=== PATIENT | female | born 1975 | race African-American/Black ===

== ENCOUNTER 2018-07-06 17:22 | Emergency (ER) | payer BC, OTHER ==
[~2018-07-06] VITALS: Ht 162.6 cm; Wt 88.5 kg
--- NOTE | 2018-07-06 17:52 | NUR ---
ED Nurse Note: patient walked into ED having pain to the right side of head since last night accompanied by right arm numbness and tingling. states having tingling to fingertips of right hand. denies n/v has had frequent tingling to right hand before
--- NOTE | 2018-07-06 18:10 | Emergency Room Report ---
History of Present Illness General Chief Complaint: General Complaint Source: Patient Present Illness HPI 42-year-old female patient presents the ER complaining of right-sided headache and numbness and tingling in her right upper extremity for the past day. Denies BUSTOS symptoms currently however concerned over BUSTOS symptoms last night while laying down. Reports history of migraines, states that this headache feels different. Reports that she normally takes medication for migraines, states she does not remember the name of the medication. Patient also reports history of similar tingling sensations in her hand. Reports history of arthritis. Denies acute injury or trauma. Denies syncope or dizziness. Denies neck pain or stiffness. Denies fever, chest pain or shortness of breath, abdominal pain. Denies vertigo. Denies ear ringing. Denies taking blood thinner medications. Denies history of [place] or stroke. Denies other aggravating or relieving factors. Denies hx of diabetes. Allergies: Coded Allergies: No Known Allergies (Unverified , 07/06/18) Patient History Past Medical History: see triage record Last Menstrual Period: last week Now: No Reviewed Nursing Documentation: PMH: Agreed; PSxH: Agreed Nursing Documentation-PMH Past Medical History: No History, Except For Hx Neurological Problems: Yes - migraines Review of Systems All Other Systems: negative except mentioned in HPI Physical Exam Vital Signs Date Time Temp Pulse Resp B/P (MAP) Pulse Ox O2 Delivery O2 Flow Rate FiO2 07/06/18 17:47 97.9 60 18 129/84 98 Room Air Sp02 EP Interpretation: reviewed, normal General Appearance: well appearing, no apparent distress, alert, GCS 15, non- toxic Head: normocephalic, atraumatic Eyes: bilateral eye normal inspection, bilateral eye PERRL ENT: hearing grossly normal, normal pharynx, no angioedema, normal voice, uvula midline, moist mucus membranes Neck: full range of motion Respiratory: lungs clear, normal breath sounds, no rhonchi, no respiratory distress, no accessory muscle use, no wheezing, speaking full sentences Cardiovascular #1: regular rate, rhythm, no edema Cardiovascular #2: 2+ radial (R), 2+ radial (L) Gastrointestinal: non tender, soft, no mass, non-distended, no guarding, no rebound Genitourinary: no CVA tenderness Musculoskeletal: back normal, digits/nails normal, gait/station normal, normal range of motion, non-tender, other - NVI, cap refill less than 2 seconds, positive Tinel sign on right wrist Neurologic: alert, oriented x3, responsive, whiskey regauger III-XII nml as tested, motor strength/tone normal, SLR negative, sensory intact, cerebellar normal, normal gait, speech normal Psychiatric: mood/affect normal Skin: no rash Lymphatic: no adenopathy Medical Decision Making PA Attestation Dr. Posey is my supervising Physician whom patient management has been discussed with. Diagnostic Impression: Primary Impression: Headache Additional Impression: Carpal tunnel syndrome ER Course Pt presents to ED c/o headache and numbness and tingling. DDX considered but are not limited to migraine, cluster BUSTOS, tension BUSTOS, meningitis, ICH, meningitis, mass, CVA. No focal neuro deficits, cranial nerves intact as tested, low suspicion for CVA. No meningeal signs, no fever, low suspicion for meningitis. VITAL SIGNS are WNL, patient is afebrile ER COURSE Provided with Tylenol for pain and BUSTOS symptoms. CT head negative for intracranial process. Discuss results with the patient. Provided patient with copy of results. Instructed patient to followup with PCP and discuss results of report with patient, discuss need for further treatment and referral. Follow-up with neurology. Physical exam, and, PIN, radial nerve intact, full range of motion, positive Tinel sign, likely carpal tunnel, provide patient with wrist splint. Checked afterwards by me showing good alignment and neurovascularly intact. Follow-up with Ortho/PT and discus need for nerve conduction test. No acute injury or trauma, does not require x-ray imaging at this time. Low suspicion for fracture. Patient resting comfortably, smiling, laughing, talking without difficulty. Patient reports pain improved. Patient is AOx3, neurologically intact, nontoxic appearing, and ambulatory. DISCHARGE: -Rx provided Tylenol At this time pt is stable for d/c to home. Patient is resting comfortably, in no acute distress, nontoxic appearing, talking and smiling. Will provide with patient care instructions and any necessary prescriptions. Patient to take medication as instructed. Care plan and follow-up instructions provided. Patient questions asked and answered. Patient instructed to follow-up with primary care provider in the next 3 days and discuss further referral with PCP to neurologist. ER precautions given. Patient instructed to return to ER immediately for any new or worsening of symptoms including but not limited to fever, neck stiffness , vision changes, and neurological symptoms. - Please note that this Emergency Department Report was dictated using [employer] inspection room technology software, occasionally this can lead to erroneous entry secondary to interpretation by the dictation equipment. CT/MRI/US Diagnostic Results CT/MRI/US Diagnostic Results : Imaging Test Ordered: CT head Impression No acute intra-cranial process. Last Vital Signs Date Time Temp Pulse Resp B/P (MAP) Pulse Ox O2 Delivery O2 Flow Rate FiO2 07/06/18 17:47 97.9 60 18 129/84 98 Room Air Status: improved Disposition: HOME, SELF-CARE Condition: Stable Scripts Acetaminophen* (TYLENOL EXTRA STRENGTH*) 500 Mg Tablet 500 MG ORAL Q8H PRN for Prn Headache/Temp > 101, #30 TAB 0 Refills Prov: Gerry Metcalf 07/06/18 Patient Instructions: Carpal Tunnel Syndrome, [id number], General Headache Without Cause, Paresthesia, [id number] Additional Instructions: Follow-up with primary care provider in 2-3 days, discussed referral to neurology. Patient instructed to follow up with primary care provider and discuss further referral to orthopedics/physical therapy/pain management as needed. If unable to followup with PCP, followup with orthopedic urgent care in 5-7 days , call to schedule appointment. Patient instructed on RICE method: rest, ice, compression, elevation. Patient instructed to WBAT. Take medications as directed. Patient questions asked and answered. ER precautions given, patient instructed to return to ER immediately for any new or worsening of symptoms. [facility] [address] [address] [facility], [id number] [email or web address] Gerry Metcalf Jul 06, 2018 18:10
[2018-07-06] MEDS ORDERED: Acetaminophen 500mg (ES) tab ORAL ONE (18:15)
--- NOTE | 2018-07-06 18:27 | NUR ---
ED Nurse Note: Patient refused Tylenol at this time. Patient took Motrin and her pain is controllable at this time. No facial grimacing or guarding noted.
[2018-07-06] MEDS ORDERED: TYLENOL EXTRA500 MG ORAL (19:22)
--- NOTE | 2018-07-06 19:28 | NUR ---
ED Nurse Note: pt was cleared for discharge by preston. splint on the right hand was done by user experience team lead. pt able to tolerate well. discharge indstructiona and prescriprion exlained and pt able to verbalize understanding. ib band removed. pt vs stable. denies pain. pt waslk out the ed with all belongings.
[2018-07-06 19:37] VITALS: BP 129/84
--- NOTE | 2018-07-07 09:41 | Diagnostic Imaging Report ---
Indication: Headache Technique: Contiguous 5 mm thick transaxial imaging of the head obtained in a Siemens Sensation [address] scanner. Soft tissue and bone windows generated. Automatic Exposure Control was utilized. Total Dose length Product (DLP): 1449.[address] Dose Index Volume (CTDIvol): 70.38 mGy Comparison: 09/17/2013 Findings: The size and configuration of the cortical sulci, basal cisterns, and ventricles are within normal limits for age. There is no mass effect, midline shift, or edema identified. There is no evidence of acute hemorrhage or abnormal intra-axial or extra-axial fluid collections. The bones and soft tissues are unremarkable. Impression: No mass effect, edema or acute bleed. [facility] has communicated the preliminary results to the Emergency Department. Their findings are largely concordant with this report. The CT scanner at [facility] is accredited by the [employer] and the scans are performed using dose optimization techniques as appropriate to a performed exam including Automatic Exposure control.
== END 2018-07-06 19:30 | disposition home or self-care (01) ==
LOC: EMR 18:25
DX: R51 Headache (principal); G56.01 Carpal tunnel syndrome, right upper limb
CPT/HCPCS: 70450; 99284